=== PATIENT | female | born 1955 | race Native Hawaiian/Other Pacific Islander ===

== ENCOUNTER 2022-02-01 13:37 | Emergency (ER) | payer MEDICARE, SELFPAY ==
[2022-02-01 14:02] VITALS: BP 181/64; PULSE 78; RESP 16; TEMP 36.7; O2SAT 97
--- NOTE | 2022-02-01 14:32 | PC.NURSE ---
Apologized for the wait. States she is feeling much better. Alert and oriented. States she doesn't fell like she is in a fog any more.
--- NOTE | 2022-02-01 15:55 | ED.HEATRA ---
HPI - Head Injury General Chief complaint: Head Injury Stated complaint: Fall Injury/Head Time Seen by Provider: 02/01/22 14:10 Source: patient, RN notes reviewed and old records reviewed Mode of arrival: ambulatory Limitations: no limitations History of Present Illness HPI Narrative: 66 year old female presents to [facility] accompanied by spouse after sustaining a standing level of fall while walking today when her toe caught on the curb and she fell down hitting her forehead and sustaining an abrasion on the right side of her nose. Patient reports that she felt a little funny at first after it happened but reports she feels fine now. Patient denies loss of consciousness, denies any nausea or any acute headache or any dizziness prior to fall or at present time. Patient is moving all extremities on own power, pupils equal and reactive with no nystagmus, face symmetrical with no droop, tongue midline states that she feels a little sleepy. Dressing applied to forehead in triage. MD Complaint: head injury and other (laceration of forehead) Onset (ago): hour(s) (prior to arrival) Mechanism of Injury: fall Place: outdoors Location of injury: other (forerhead) Severity scale (1-10): 2 Other Injuries: other (abrasion to side of nose) Related Data Home Medications Medication Instructions Recorded Confirmed pravastatin 40 mg tablet mg 02/01/22 valsartan 160 tablet 02/01/22 mg-hydrochlorothiazide 25 mg tablet Allergies Allergy/AdvReac Type Severity Reaction Status Date / Time No Known Allergies Allergy Verified 02/01/22 13:51 Review of Systems Review of Systems: CONSTITUTIONAL: Denies fever, chills, or sweats. CARDIOVASCULAR: Denies chest pain, palpitations, or edema. RESPIRATORY: Denies cough or dyspnea. SKIN: Reports laceration to forehead from fall which happened prior to arrival also abrasion to the right side of her nose, denies any acute headache pain, nausea or any vomiting, no dizziness. MUSCULOSKELETAL: Denies musculoskeletal pain NEUROLOGIC: Denies numbness, or weakness. All systems reviewed & are unremarkable except as noted in HPI and below PMFSH Past Medical History Medical History (Updated 02/06/22 @ 20:17 by Kaylen Palafox NP) Elevated cholesterol Hypertension Social History Social History (Updated 02/06/22 @ 20:27 by Kaylen Palafox NP) Smoking status: Never smoker Alcohol intake: unknown Substance use type: does not use Living arrangements: with family Gender identity (if verbalized by the patient): Female Comments At time of signature, agree with nursing past medical, surgical, social and family history. There is no relevant family history pertinent to the presenting complaint Exam Narrative: GENERAL: Well-appearing, well-nourished, and in no acute distress. HEAD: Normocephalic, atraumatic.PERRLA, no nystagmus, no photophobia. NECK: Supple.no lymphadenopathy CHEST: Clear to auscultation. No respiratory distress.SAO2 97% on room air HEART: Regular rate and rhythm. No murmur heard. Normal peripheral pulses. EXTREMITIES: Normal range of motion. No edema. SKIN: Warm, dry, no rash. 1cm linear laceration to the right forehead from fall, see procedure note for laceration repair, abrasion to right side of nasal area NEURO: No focal deficits. Alert and oriented x3.no nausea,no acute headache, no vomiting, no changes in alertness, no LOC at time of accident. Course Course Level of Care: Express Care Visit Vital Signs Vital signs: Vital Signs Temperature 36.7 C 02/01/22 14:02 Pulse Rate 78 02/01/22 14:02 Respiratory Rate 16 02/01/22 14:02 Blood Pressure 181/64 H 02/01/22 14:02 Pulse Oximetry 97 02/01/22 14:02 Oxygen Delivery Room Air 02/01/22 14:02 Temperature 36.7 C 02/01/22 14:02 Pulse Rate 78 02/01/22 14:02 Respiratory Rate 16 02/01/22 14:02 Blood Pressure 181/64 H 02/01/22 14:02 Pulse Oximetry 97 02/01/22 14:02 Oxygen Delivery Room
== END 2022-02-01 16:55 | disposition home or self-care (01) ==
PROVIDERS: Emergency Provider Registered Nurse; PCP Nurse Practitioner Family
DX: S01.81XA Laceration without foreign body of other part of head, initial encounter (principal); I10 Essential (primary) hypertension; E78.00 Pure hypercholesterolemia, unspecified; W01.0XXA Fall on same level from slipping, tripping and stumbling without subsequent striking against object, initial encounter
CPT/HCPCS: 12011; 99212; G0463